=== PATIENT | female | born 1980 | race American Indian/Alaskan Native ===

== ENCOUNTER 2019-03-03 21:10 | Emergency (ER) | payer MEDICAID ==
--- NOTE | 2019-03-03 21:31 | Event Note ---
ED Screening Note Date of service: 03/03/19 Time: 21:29 ED Screening Note: 38 y o f presents to Ed cc of vaginal discomfort with associated right thigh groin pain from a herpes outbreak This initial assessment/diagnostic orders/clinical plan/treatment(s) is/are subject to change based on patients health status, clinical progression and re- assessment by fellow clinical providers in the ED. Further treatment and workup at subsequent clinical providers discretion. Patient/guardian urged not to elope from the ED as their condition may be serious if not clinically assessed and managed. Initial orders include: ACC evaluate
--- NOTE | 2019-03-04 01:45 | Emergency Department Report ---
ED Female HPI - General Chief complaint: Urogenital-Female Stated complaint: PAIN IN LEG, HERPES OUTBREAK Time Seen by Provider: 03/03/19 21:28 Source: patient Mode of arrival: Ambulatory Limitations: No Limitations - History of Present Illness Initial comments: Patient is a A0 38-year-old -[place] female with past medical history of chronic recurrent genital herpes presents to the ED with complaint of painful erythematous ulcerative lesions in the vaginal area for the last 2 days. Patient also states that she had similar rashes in oral cavity and relates about 5 days ago and which has since resolved. Patient denies fever, chills, nausea, vomiting, dysuria, urinary frequency and urgency, vaginal itching, abdominal pain, vaginal discharge or vaginal bleeding, low back pain and dyspareunia. MD Complaint: possible STD, other (gENITAL HERPES OUTBREAK) -: Sudden, days(s) (2) Location: labia, perineum Radiation: non-radiating Severity: moderate Severity scale (0 -10): 4 Quality: cramping, sharp, burning Consistency: constant Improves with: none Worsens with: movement Are you Now?: No Last Menstrual Period: 02/24/19 EDC: 12/01/19 Associated Symptoms: denies other symptoms, rash (erythematous ulcerated lesion on perineum). denies: vaginal discharge, vaginal bleeding, abdominal pain, nausea/vomiting, fever/chills, headaches, loss of appetite, hematuria - Related Data Sexually active: Yes : 1 Para: 1 A: 0 Previous Rx's Medication Instructions Recorded Last Taken Type Valacyclovir HCl [Valtrex] 1,000 mg PO Q8H #30 tablet 03/04/19 Unknown Rx Allergies Allergy/AdvReac Type Severity Reaction Status Date / Time topiramate [From Topamax] Allergy Unknown Verified 03/03/19 21:13 ED Review of Systems ROS: Stated complaint: PAIN IN LEG, HERPES OUTBREAK Other details as noted in HPI Constitutional: denies: chills, fever Eyes: denies: eye pain, eye discharge, vision change ENT: denies: ear pain, throat pain Respiratory: denies: cough, shortness of breath, wheezing Cardiovascular: denies: chest pain, palpitations Endocrine: no symptoms reported Gastrointestinal: denies: abdominal pain, nausea, diarrhea Genitourinary: denies: urgency, dysuria, discharge Musculoskeletal: denies: back pain, joint swelling, arthralgia Skin: rash (perineum ulcerated lesions with pain), lesions (Ulcerated lesion on perineum), pruritus Neurological: denies: headache, weakness, paresthesias Psychiatric: denies: anxiety, depression Hematological/Lymphatic: denies: easy bleeding, easy bruising ED Past Medical Hx - Past Medical History Hx Hypertension: Yes Hx Headaches / Migraines: Yes Additional medical history: vaginal herpes,lupus - Surgical History Past Surgical History?: No - Social History Smoking Status: Never Smoker Substance Use Type: None - Medications Home Medications: Home Medications Medication Instructions Recorded Confirmed Last Taken Type Valacyclovir HCl [Valtrex] 1,000 mg PO Q8H #30 tablet 03/04/19 Unknown Rx ED Physical Exam - General Limitations: No Limitations General appearance: alert, in no apparent distress - Head Head exam: Present: atraumatic, normocephalic - Eye Eye exam: Present: normal appearance, PERRL, EOMI Pupils: Present: normal accommodation - ENT ENT exam: Present: normal exam, normal orophraynx, mucous membranes moist, TM's normal bilaterally, normal external ear exam - Neck Neck exam: Present: normal inspection, full ROM - Respiratory Respiratory exam: Present: normal lung sounds bilaterally. Absent: respiratory distress, wheezes, rales, rhonchi, chest wall tenderness, decreased breath sounds, prolonged expiratory - Cardiovascular Cardiovascular Exam: Present: regular rate, normal rhythm, normal heart sounds. Absent: systolic murmur, diastolic murmur, rubs, gallop - GI/Abdominal GI/Abdominal exam: Present: soft, normal bowel sounds. 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 Absent: muscle spasm, paraspinal tenderness - Neurological Exam Neurological exam: Present: alert, oriented X3, CN II-XII intact, normal gait, reflexes normal - Psychiatric Psychiatric exam: Present: normal affect, normal mood, anxious - Skin Skin exam: Present: warm, dry, intact, normal color. Absent: rash ED Course Vital Signs 03/03/19 21:30 Temperature 98.3 F Pulse Rate 77 Respiratory 16 Rate Blood Pressure 109/70 O2 Sat by Pulse 98 Oximetry - Reevaluation(s) Reevaluation #1: 03/04/19 01:50 Patient is alert and oriented 3 and is not in distress. There is on the patient's physical exam findings of ulcerated tender lesions in the perineum, patient was discharged home on Valtrex 1 g 3 times a day and was advised to follow-up with her primary care physician in 7-10 days for reevaluation or return to the ED immediately if symptoms get worse. ED Medical Decision Making - Medical Decision Making Patient is alert and oriented 3 and is not in distress. There is on the patient's physical exam findings of ulcerated tender lesions in the perineum, patient was discharged home on Valtrex 1 g 3 times a day and was advised to follow-up with her primary care physician in 7-10 days for reevaluation or return to the ED immediately if symptoms get worse. - Differential Diagnosis Genital herpes outbreak; Vaginitis candidal; Folliculitis Critical care attestation.: If time is entered above; I have spent that time in minutes in the direct care of this critically ill patient, excluding procedure time. ED Disposition Clinical Impression: Genital herpes simplex type 2 Disposition: DC-01 TO HOME OR SELFCARE Is pt being admited?: No Does the pt Need Aspirin: No Condition: Stable Additional Instructions: Take medications with food, drink plenty of fluids and follow-up with your primary care physician in 7-10 days for reevaluation, return to the ED immed iately if symptoms get worse. Prescriptions: Valacyclovir HCl [Valtrex] 1,000 mg PO Q8H #30 tablet Referrals: RAFFAELE KOWALSKI NP [Primary Care Provider] - 3-5 Days Time of Disposition: 01:42 Print Language: URUGUAYAN
[2019-03-04 03:45] VITALS: BP 118/76
== END 2019-03-04 02:00 | disposition home or self-care (01) ==
LOC: ED 21:10
DX: A60.04 Herpesviral vulvovaginitis (principal); I10 Essential (primary) hypertension; G43.909 Migraine, unspecified, not intractable, without status migrainosus; Z79.899 Other long term (current) drug therapy; Z88.8 Allergy status to other drugs, medicaments and biological substances
CPT/HCPCS: 99282

== ENCOUNTER 2021-01-03 19:43 | Emergency (ER) | payer SELFPAY ==
[2021-01-03 19:51] VITALS: BP 125/80
== END 2021-01-03 21:15 | disposition left against medical advice (07) ==
LOC: ED 19:43
DX: Z00.8 Encounter for other general examination (principal); Z53.21 Procedure and treatment not carried out due to patient leaving prior to being seen by health care provider

== ENCOUNTER 2021-07-17 02:42 | Emergency (ER) | payer SELFPAY | END 2021-07-17 09:18 | disposition left against medical advice (07) | LOC: ED 02:42 | DX: R07.9 Chest pain, unspecified (principal); Z53.21 Procedure and treatment not carried out due to patient leaving prior to being seen by health care provider ==